=== PATIENT | male | born 1970 ===

== ENCOUNTER 2020-06-10 13:38 | Outpatient (REF) | payer BC, SELFPAY ==
[2020-06-15 17:44] LABS: SARS-CoV-2 RNA Undetected (Undetected); SARS-CoV-2 Specimen Source Nasal
== END 2020-06-10 13:58 ==
LOC: NCHCN 13:38
PROVIDERS: Visit Provider Nurse Practitioner Family
DX: Z20.828 Contact with and (suspected) exposure to other viral communicable diseases (principal)
CPT/HCPCS: U0003